=== PATIENT | female | born 1990 | race American Indian/Alaskan Native ===

== ENCOUNTER 2018-02-15 11:24 | Outpatient (CLI) | payer MEDICAID ==
[2018-02-15 12:03] LABS: Bilirubin,Urine NEG (Negative); Blood,Urine NEG (Negative); Color,Urine Yellow (Yellow); Mucus,Urine 3+ /HPF; Urobilinogen,Urine < 2.0 mg/dL (<2.0)
[2018-02-15 12:12] LABS: Amphetamine Screen,Urine PRESUMPTIVE NEGATIVE; Benzodiazepines Screen,Urine PRESUMPTIVE NEGATIVE; Cocaine Screen,Urine PRESUMPTIVE NEGATIVE; Methadone Screen,Urine PRESUMPTIVE NEGATIVE; Opiate Screen,Urine PRESUMPTIVE NEGATIVE
[2018-02-15 12:29] LABS: Cannabinoid Screen,Urine PRESUMPTIVE POSITIVE
--- NOTE | 2018-02-15 20:54 | Ultrasound Report ---
FINAL REPORT EXAM: US OB > = 14 WEEKS FETUS HISTORY: VAGINAL BLEEDING TECHNIQUE: Limited obstetrical ultrasound PRIORS: None. FINDINGS: LMP: 09/15/2017 clinical Age: 21 W 6 D US Age (average) = 23 w 2 d EFW (BPD,HC,AC,FL) = 625 g +/- 93 g (1 lbs 6 oz. +/- 3 oz.) LMP EDC 06/22/2018 US EDC 06/12/2018 CI 82.6 (range 74 to 83)) HC/AC 1.08 (range .1.06 to 1.25) FL/BPD 8.14 FL/HC 21.7 (range 11.5 to 24.7) FL/AC 23.5 (range 20 to 24) BPD 5.4 cm corresponding to estimated age 22 weeks 3 days HC 20.4 cm corresponding to estimated age 22 weeks 3 days AC 18.8 cm corresponding to estimated age 23 weeks 4 days FL 4.4 cm corresponding to estimated age 24 weeks 4 days Presentation: Cephalic Activity: Monitored Placental location: Fundus Placental grade: 0 Cardiac motion: 141 BPM using M-mode doppler Heart (4 CH) : Not well-visualized Umbilical cord: 3 vessel. Bladder: Present Kidneys: Not visualized stomach: Present Diaphragm: Present Spine: Present brain and skull: Present with normal anatomy Cord Insertion: Present Amniotic Fluid Volume: Adequate Cervical Length: 4.8 cm Internal cervical os is open measuring 7.5 mm in diameter. The umbilical cord is present between the head and the cervix. It does not extend into the open cervical os however. This may be a temporary positioning and can be followed up. IMPRESSION: single intrauterine viable with an approximate age of 23 weeks 2 days. There is opening of the internal cervical os measuring 7.5 mm. The umbilical cord is present between the head and the internal os doubt, however, it is not position within the cervical os. This may be a temporary positioning and can be followed up.
== END 2018-02-15 13:49 | disposition home or self-care (01) ==
LOC: TRG 11:24
PROVIDERS: ATTEND Obstetrics & Gynecology
DX: O47.02 False labor before 37 completed weeks of gestation, second trimester (principal); Z3A.21 21 weeks gestation of pregnancy
CPT/HCPCS: 59025; 76805; 80307; 81001